=== PATIENT | male | born 1950 | race Caucasian/White ===

== ENCOUNTER 2016-04-26 23:28 | Emergency (ER) | payer MEDICARE, BC ==
--- NOTE | ~2016-04-26 | ER ---
PATIENT'S NAME: CINDY CRUZ [facility] AGE: 66 Y [address] ROOM: [place] [id number] LOCATION: [facility] ADMIT DATE: 04/26/2016 ER/Outpatient Report DISCHARGE DATE: 04/26/2016 FAMILY PHYSICIAN: Luis Alberto Campoverde MD ATTENDING PHYSICIAN: Darrell Gould Admission date and time documented on the medical record. I saw the patient at 2340 hours. CHIEF COMPLAINT: Right lower jaw second molar pain. HISTORY OF PRESENT ILLNESS: The patient is a 66-year-old male, who has had a 24-hour history of right lower jaw pain involving the second right lower molar. He was seen by a dentist today, was told that he had an abscess, needed a root canal, unable to do that today, so he is scheduled to have it done at 10:30 tomorrow morning. Could not take the pain, so he came in the emergency room for evaluation. His current pain is 10/10. No other complaints. The patient is an insulin- dependent diabetic with an insulin pump. HOME MEDICATIONS: See attached medication list. ALLERGIES: LATEX, PENICILLIN, AND PROCAINE. SOCIAL HISTORY: Nonsmoker. Nondrinker. SIGNIFICANT PAST MEDICAL HISTORY: Atherosclerotic ischemic heart disease with coronary artery disease; insulin- dependent diabetes mellitus type 2, insulin pump; dyslipidemia; hypertension; chronic back pain; benign prostatic hypertrophy; remote tobacco abuse; angina; paroxysmal atrial fibrillation; multiple sclerosis; degenerative joint disease; degenerative osteoarthritis; degenerative disk disease; and lumbosacral stenosis. OPERATIONS: Cardiac catheterization; 4-vessel coronary artery bypass graft; tonsillectomy; adenoidectomy; back surgery x2; thoracentesis, left chest x2; and central line placement. REVIEW OF SYSTEMS: All systems reviewed by me are negative with the exception of those discussed PATIENT'S NAME: CINDY CRUZ [facility] AGE: 66 Y [address] ROOM: [place], [place] [address] LOCATION: [facility] ADMIT DATE: 04/26/2016 ER/Outpatient Report DISCHARGE DATE: 04/26/2016 FAMILY PHYSICIAN: Luis Alberto Campoverde MD ATTENDING PHYSICIAN: Darrell Gould in the history of present illness. PHYSICAL EXAMINATION: VITAL SIGNS: Temperature 97.4 tympanic, pulse 70 and regular, respirations 18, blood pressure 143/59, and O2 saturation on room air is 94%. On examination, the patient has tenderness on the right lower second molar. Mild swelling. No redness. No drainage. JAW: No swelling. Tender to palpation. NECK: Negative. EYES, EARS, NOSE, THROAT: Clear. Mucous membranes moist. LUNGS: Clear. HEART: Regular. ABDOMEN: Soft. Nontender. Good bowel tones. NEUROVASCULAR: Intact. SKIN: Clear. IMPRESSION: 1. Right lower jaw pain, right lower second molar pain. The patient was told that he has an abscess and needs a root canal. 2. Atherosclerotic ischemic heart disease with coronary artery disease. Insulin-dependent diabetes mellitus type 2 with an insulin pump. 3. Hypertension. PLAN: The patient was given Percocet 5/325 two orally in the emergency room for pain. Discharged home. Observation. Activity as tolerated. Continue present home medications and care. Continue the clindamycin that he has. Continue ibuprofen. We will start him on Percocet 7.5/325 one every 4 to 6 hours as needed for pain. Follow up with personal physician as needed. Follow up with dentist tomorrow as scheduled at 10:30 for root canal procedure. Discussion ensued with the patient concerning my findings and recommendations, he understands. MD WENDY RODRIGUEZ/josselynl /[id number] d: 04/27/163 t: 04/27/16 1811, OUTPATIENT REPORT
[~2016-04-26 23:28] MED LIST: ASPIRIN325 MG PO; AVONEX30 MCG SUB-Q; COLACE100 MG PO; COREG12.5 MG PO; FLOMAX0.4 MG PO; GLUCOPHAGE XR500 M1 PO; K-TAB 10MEQ10 MEQ PO; LASIX40 MG PO; NEURONTIN100 MG PO; NEURONTIN300 MG PO; NORCO 5-325 MG1 TAB PO; NOVOLOG100 UNIT/M SUB-Q; PROTONIX40 MG PO; RYTHMOL150 MG PO; SPIRONOLACTONE25 MG PO; ULTRAM50 MG PO; VITAMIN B-121000 MCG PO; ZANAFLEX2 MG PO; ZOLOFT50 MG PO
== END 2016-04-26 23:54 | disposition disaster alternative care site (69) ==
LOC: GMED 23:28
DX: K08.89 Other specified disorders of teeth and supporting structures (principal); R68.84 Jaw pain; I25.10 Atherosclerotic heart disease of native coronary artery without angina pectoris; E11.8 Type 2 diabetes mellitus with unspecified complications; I10 Essential (primary) hypertension; E78.5 Hyperlipidemia, unspecified; M19.90 Unspecified osteoarthritis, unspecified site; N40.0 Benign prostatic hyperplasia without lower urinary tract symptoms; G35 Multiple sclerosis; Z95.1 Presence of aortocoronary bypass graft; Z90.89 Acquired absence of other organs; Z96.41 Presence of insulin pump (external) (internal); Z88.0 Allergy status to penicillin; Z88.4 Allergy status to anesthetic agent; Z91.040 Latex allergy status; Z98.890 Other specified postprocedural states; Z79.899 Other long term (current) drug therapy; Z79.82 Long term (current) use of aspirin; Z79.4 Long term (current) use of insulin

== ENCOUNTER → 2016-05-19 | Outpatient (CLI) | payer MEDICARE, BC | END | disposition disaster alternative care site (69) | LOC: GAMB 00:47 | DX: M54.9 Dorsalgia, unspecified (principal); G35 Multiple sclerosis; R07.9 Chest pain, unspecified | CPT/HCPCS: A0425; A0427; J3010 ==

== ENCOUNTER 2016-05-20 01:09 | Emergency (ER) | payer MEDICARE, BC ==
--- NOTE | ~2016-05-20 | ER ---
PATIENT'S NAME: CINDY CRUZ [facility] AGE: 66 Y [address] ROOM: [place] [address] LOCATION: [facility] ADMIT DATE: 05/20/2016 ER/Outpatient Report DISCHARGE DATE: FAMILY PHYSICIAN: Physician, Unknown ATTENDING PHYSICIAN: Darrell Gould Admission date and time documented in the medical record. I saw the patient at 0125 hours. CHIEF COMPLAINT: Low back pain. HISTORY OF PRESENT ILLNESS: This patient is a 66-year-old male, who comes in with low back pain. It started around 2300 hours tonight. He had been mowing all day on a rider, bounce and around. He thinks this may have aggravated his back. No pain down his legs. No weakness in his legs. Just the pain across his low back. No chest pain, shortness of breath. No headache, eyes, ears, nose, throat, neck pain. No recent coughs, colds, flus, fever, chills, or sweats. No lightheadedness, dizziness, syncope, or near syncope. No abdominal pain, nausea, vomiting, diarrhea. No urinary complaints. No bowel problems. No skin eruptions or rash. No history of neuro changes or psych issues. HOME MEDICATIONS: See attached medication list. ALLERGIES: LATEX, PENICILLIN, PROCAINE. SOCIAL HISTORY: Nonsmoker, nondrinker. SIGNIFICANT PAST MEDICAL HISTORY: Atherosclerotic ischemic heart disease; coronary artery disease; insulin- dependent diabetes mellitus, on insulin pump; dyslipidemia; hypertension; chronic back pain; benign prostatic hypertrophy; remote tobacco abuse; angina; paroxysmal atrial fibrillation; multiple sclerosis; degenerative joint disease; degenerative osteoarthritis; degenerative disk disease; lumbosacral stenosis. OPERATIONS: Cardiac catheterization, 4-vessel coronary bypass graft, tonsillectomy, adenoidectomy, back surgery x2, thoracentesis x2 involving the left chest, central line placement, lumbar laminectomy. PATIENT'S NAME: CINDY CRUZ [facility] AGE: 66 Y [address] ROOM: [place], [place] [address] LOCATION: [facility] ADMIT DATE: 05/20/2016 ER/Outpatient Report DISCHARGE DATE: FAMILY PHYSICIAN: Physician, Unknown ATTENDING PHYSICIAN: Darrell Gould REVIEW OF SYSTEMS: All systems reviewed by me are negative with the exception of those discussed in the history of present illness. PHYSICAL EXAMINATION: VITAL SIGNS: Temperature 97 tympanic, pulse 61, respirations 16, blood pressure 142/66, O2 saturation on room air is 95%. HEENT: Negative. LUNGS: Clear. HEART: Regular. ABDOMEN: Soft, nondistended, nontender. Good bowel tones. No organomegaly or abnormal mass palpable. EXTREMITIES: Moves all 4 extremities. Good strength in all 4 extremities. Good sensation in all 4 extremities. Negative straight leg raising. Tenderness across the lower back to palpation and with movement. Decreased range of motion of his lumbar back spine. IMPRESSION: Low back pain without sciatica. PLAN: The patient was given fentanyl en route, improved his pain. I did give him Toradol 60 mg, Valium 10 mg, and morphine sulfate 4 mg IM in the emergency department. Dismissed home. Observation. Activity as tolerated. Ice and heat as needed to sore areas intermittently. Continue present home medications and care. Toradol 10 mg 1 every 6 hours x12 doses. Flexeril 10 mg 3 times a day, #30. Percocet 7.5/325 as needed for pain, #12. Physical Therapy. Follow up with personal physician in 4 to 5 days. Discussion ensued with the patient concerning my findings and recommendations, he understands. MD WENDY RODRIGUEZ/josselynl /[id number] d: 05/20/16224 t: 05/20/16 1825, OUTPATIENT REPORT
== END 2016-05-20 02:04 | disposition disaster alternative care site (69) ==
LOC: GMED 01:09
DX: M54.5 Low back pain (principal); I10 Essential (primary) hypertension; E78.5 Hyperlipidemia, unspecified; E11.9 Type 2 diabetes mellitus without complications; I25.10 Atherosclerotic heart disease of native coronary artery without angina pectoris; M19.90 Unspecified osteoarthritis, unspecified site; Z88.0 Allergy status to penicillin; Z91.040 Latex allergy status; Z90.89 Acquired absence of other organs
CPT/HCPCS: J1885; J2270; J3010; J3360